=== PATIENT | female | born 1950 | race Caucasian/White ===

== ENCOUNTER 2018-11-24 06:55 | Day surgery (SDC) | payer MEDICARE, MEDICAID ==
[2018-11-24] VITALS (15 sets, daily range): BP systolic 122–148; BP diastolic 52–76
[~2018-11-24] VITALS: Ht 162.6 cm; Wt 75.3 kg
[2018-11-24] MEDS ORDERED: normal saline 1000ml 1,000 ML IV PRN (07:25)
[2018-11-24] MEDS ORDERED: CYCL-1 PO (07:56)
[2018-11-24] MEDS ORDERED: EST1T PO (07:56)
[2018-11-24] MEDS ORDERED: CHOL50004 PO (07:56)
[2018-11-24] MEDS ORDERED: HYDR-3973 PO (07:56)
[2018-11-24] MEDS ORDERED: VERA180T PO (07:56)
[2018-11-24] MEDS ORDERED: ESCI10TA54 PO (07:56)
[2018-11-24] MEDS ORDERED: MEDR2.5T7 PO (07:56)
[2018-11-24] MEDS ORDERED: LOVA20TA2 PO (07:56)
[2018-11-24] MEDS ORDERED: fentaNYL/PF 50MCG/1 ML 2ML syringe ONE (08:09)
[2018-11-24] MEDS ORDERED: midazolam 2 mg/2 ml injection ONE (08:09)
[2018-11-24] MEDS ORDERED: midazolam 2 mg/2 ml injection IV PRN (08:15)
[2018-11-24] MEDS ORDERED: fentaNYL/PF 50MCG/1 ML 2ML syringe IV PRN (08:15)
[2018-11-24] MEDS ORDERED: LIDOcaine 1%/PF 5ML 10 MG/ML VIAL SQ ONE (08:15)
[2018-11-24] MEDS ORDERED: LIDOcaine 1% (10mg/ml) 2ml vial SQ ONE (08:25)
[2018-11-24 08:38] LABS: ALBUMIN 3.9 G/DL (3.4-5.0); ANION GAP 8 (8-16); BLOOD UREA NITROGEN 13 MG/DL (7-18); BUN/CREATININE RATIO 16.9 (6.6-38.0); CALCIUM 9.2 MG/DL (8.5-10.1); CHLORIDE 106 MMOL/L (99-107); CREATININE 0.77 MG/DL (0.40-0.90); GLUCOSE 81 MG/DL (70-104); POTASSIUM 4.3 MMOL/L (3.5-5.1); SODIUM 143 MMOL/L (135-145); TOTAL CARBON DIOXIDE 29.5 MMOL/L (24-32); eGFR 75 ML/MIN
[2018-11-24 08:39] LABS: BASOPHILS # (AUTO) 0.1 X10'3 (0-0.2); BASOPHILS % (AUTO) 0.9 % (0-1); EOSINOPHILS # (AUTO) 0.1 X10'3 (0-0.9); EOSINOPHILS % (AUTO) 1.3 % (0-6); HEMATOCRIT 48.3 % (35.0-45.0); HEMOGLOBIN 16.3 g/dl (12.0-16.0); LYMPHOCYTES # (AUTO) 2.4 X10'3 (1.1-4.8); LYMPHOCYTES % (AUTO) 37.4 % (21-51); MEAN CORPUSCULAR HEMOGLOBIN 31.6 PG (27.0-31.0); MEAN CORPUSCULAR HGB CONC 33.7 g/dL (33.0-36.5); MEAN CORPUSCULAR VOLUME 93.8 FL (78-98); MONOCYTES # (AUTO) 0.4 X10'3 (0-0.9); NEUTROPHILS # (AUTO) 3.5 X10'3 (1.8-7.7); NEUTROPHILS % (AUTO) 54.4 % (42-75); PLATELET COUNT 238 X10'3 (140-440); RED BLOOD COUNT 5.15 X10'6 (4.20-5.60); RED CELL DISTRIBUTION WIDTH 14.1 % (11.5-14.5); WHITE BLOOD COUNT 6.4 X10'3 (4.5-11.0)
[2018-11-24] MEDS ORDERED: morphine 4 MG/ML inj SYRINge IV PRN (09:50)
[2018-11-24] MEDS ORDERED: HYDROcodone/acetaminophen 5mg/325mg tablet PO PRN ×2 (09:50)
== END 2018-11-24 14:00 | disposition home or self-care (01) ==
LOC: SSTAY O 06:55
PROVIDERS: ATTEND Radiology Vascular & Interventional Radiology
DX: R91.1 Solitary pulmonary nodule (principal); I10 Essential (primary) hypertension; Z90.49 Acquired absence of other specified parts of digestive tract; Z98.890 Other specified postprocedural states; F17.210 Nicotine dependence, cigarettes, uncomplicated; Z88.1 Allergy status to other antibiotic agents; Z88.8 Allergy status to other drugs, medicaments and biological substances; Z88.2 Allergy status to sulfonamides; Z79.899 Other long term (current) drug therapy
CPT/HCPCS: 32405; 36415; 71045; 77012; 80048; 85025; 99152; 99153; J2250; J3010; J7030; 88173; 88305